=== PATIENT | female | born 1945 | race Caucasian/White ===

== ENCOUNTER 2022-10-24 20:53 | Inpatient (IN) | payer MEDICARE ==
[2022-10-24] MEDS ORDERED: SODIUM CHLORIDE 0.9% 500 ML 500 ML IV ONE (21:26)
[2022-10-24] MEDS ORDERED: CLINDAMYCIN 600 MG in DEXTROSE 5% IN WATER 50 ML IVPB ONE ×2 (21:45)
[2022-10-24 22:08] LABS: Basophils # (A) 0.1 k/uL (0-0.2); Basophils % (A) 1 %; Eosinophils # (A) 0.1 k/uL (0-0.7); Eosinophils % (A) 1 %; HCT 40.9 % (34.0-46.0); HGB 13.3 gm/dL (11.4-16.0); Hypochromasia Slight; Lymphocytes # (A) 1.2 k/uL (1.0-4.8); Lymphocytes % (A) 14 %; MCH 33.6 pg (25.0-35.0); MCHC 32.6 g/dL (31.0-37.0); MCV 103.1 fL (80.0-100.0); Macrocytosis Slight; Mean Platelet Volume 7.9; Monocytes # (A) 0.4 k/uL (0-1.0); Monocytes % (A) 5 %; Neutrophils # (A) 6.7 k/uL (1.3-7.7); Neutrophils % (A) 79 %; Platelet Count 236 k/uL (150-450); RBC 3.97 m/uL (3.80-5.40); RDW 14.7 % (11.5-15.5); WBC 8.6 k/uL (3.8-10.6)
[2022-10-24 22:19] LABS: Calcium 9.2 mg/dL (8.4-10.2); Potassium 3.2 mmol/L (3.5-5.1); Total Protein 7.8 g/dL (6.3-8.2)
[2022-10-24] MEDS ORDERED: NALOXONE 0.4 MG/ML 1 ML VIAL IV PRN (22:39)
--- NOTE | 2022-10-24 22:48 | ED ---
Skin/Abscess/FB HPI - General Chief complaint: Skin/Abscess/Foreign Body Stated complaint: cellulitis Time Seen by Provider: 10/24/22 21:02 Source: patient, family Mode of arrival: wheelchair Limitations: no limitations - History of Present Illness Initial comments: Patient is a 76-year-old female presenting with chief complaint of infection to the bilateral lower extremities. Patient states that since 10/07/22 she has had cellulitis of the left lower extremity. Patient has been on Keflex since then. Patient states that today she noticed redness and swelling to the right lower extremity. Patient has history of lower extremity edema, has been trying to take extra of her torsemide to help with the swelling. She denies any pain. No chest pain, difficulty breathing, abdominal pain, nausea, vomiting, fever, chills, neck pain or stiffness, palpitations, weakness. - Related Data Home Medications Medication Instructions Recorded Confirmed Amiodarone HCl [Pacerone] 200 mg PO DAILY 10/24/22 10/24/22 Apixaban [Eliquis] 5 mg PO BID 10/24/22 10/24/22 Aspirin EC [Ecotrin Low Dose] 81 mg PO HS 10/24/22 10/24/22 Calcium Carbonate/Vitamin D3 1 tab PO HS 10/24/22 10/24/22 [Calcium 600-Vit D3 10 mcg (400 Iu)] Cephalexin [Keflex] 500 mg PO QID 10/24/22 10/24/22 Lidocaine 5% Oint [Xylocaine 5% 1 applic TOPICAL DAILY 10/24/22 10/24/22 Oint] Losartan [Cozaar] 50 mg PO HS 10/24/22 10/24/22 Metoprolol Succinate (ER) [Toprol 50 mg PO HS 10/24/22 10/24/22 Xl] Multivit/Iron Sulf/Folic Acid 1 tab PO HS 10/24/22 10/24/22 [Multivitamin with Iron] Oxybutynin Chloride [Oxybutynin 10 mg PO HS 10/24/22 10/24/22 Chloride ER] Potassium Chloride ER [K-Dur 20] 20 meq PO TID 10/24/22 10/24/22 Simvastatin [Zocor] 10 mg PO DAILY 10/24/22 10/24/22 Torsemide [Demadex] 20 mg PO BID@0900,1400 10/24/22 10/24/22 Vit C/E/Zn/Coppr/Lutein/Zeaxan 1 cap PO DAILY 10/24/22 10/24/22 [Preservision Areds 2 Softgel] allopurinoL [Zyloprim] 100 mg PO BID 10/24/22 10/24/22 cloNIDine 0.3 MG/24HR PATCH 1 patch TRANSDERM FR 10/24/22 10/24/22 [Catapres-Tts 0.3MG Patch] Allergies Allergy/AdvReac Type Severity Reaction Status Date / Time No Known Allergies Allergy Verified 10/24/22 20:59 Review of Systems ROS Statement: Those systems with pertinent positive or pertinent negative responses have been documented in the HPI. ROS Other: All systems not noted in ROS Statement are negative. Past Medical History Past Medical History: Coronary Artery Disease (CAD), Diabetes Mellitus, Hyperlipidemia, Hypertension History of Any Multi-Drug Resistant Organisms: None Reported Past Surgical History: Cholecystectomy, Coronary Bypass/CABG, Joint Replacement, Orthopedic Surgery, Pacemaker Past Psychological History: No Psychological Hx Reported Smoking Status: Never smoker Past Alcohol Use History: None Reported Past Drug Use History: None Reported General Exam Limitations: no limitations General appearance: alert, in no apparent distress Head exam: Present: atraumatic, normocephalic, normal inspection Eye exam: Present: normal appearance Neck exam: Present: normal inspection, full ROM Respiratory exam: Present: normal lung sounds bilaterally. Absent: respiratory distress, wheezes, rales, rhonchi, stridor Cardiovascular Exam: Present: regular rate, normal rhythm, normal heart sounds. Absent: systolic murmur, diastolic murmur, rubs, gallop, clicks Extremities exam: Present: pedal edema Neurological exam: Present: alert, oriented X3, CN II-XII intact Psychiatric exam: Present: normal affect, normal mood Skin exam: Present: warm, dry, erythema (Erythema and dryness to the bilateral lower extremities) Course Vital Signs 10/24/22 10/24/22 20:55 22:12 Temperature 97.9 F Pulse Rate 90 60 Respiratory 16 14 Rate Blood Pressure 196/110 178/82 O2 Sat by Pulse 99 99 Oximetry Medical Decision Making - Medical Decision Making Patient is a 76-year-old female presenting with chief complaint of cellulitis to the bilateral lower extremity is. Patient has been on Keflex since 10/07. Today she noticed new redness to the right lower extremity which prompted presentation. On physical examination there is no tenderness to palpation, redness and swelling are noted. No leukocytosis or anemia. Potassium is 3.2, will receive oral replacement. Patient is receiving IV clindamycin and blood cultures were drawn prior to initiation. Patient will be admitted for cellulitis. I instructed the nurse to wrap and elevate the lower extremities to help with edema which is likely causing worsening of her infection. I spoke with Spike George from [facility] was accepted admission. Follow-up with PCP. Report back to ER with any new or worsening symptoms. Discussed return parameters and answered all questions. Patient conveyed verbal understanding and agreed to the plan. I discussed this case in detail with my attending Dr. Santa - Lab Data Result diagrams: 10/24/22 21:55 10/24/22 21:55 Lab Results 10/24/22 10/24/22 10/24/22 Range/Units 21:55 21:55 21:55 WBC 8.6 (3.8-10.6) k/uL RBC 3.97 (3.80-5.40) m/uL Hgb 13.3 (11.4-16.0) gm/dL Hct 40.9 (34.0-46.0) % MCV 103.1 H (80.0-100.0) fL MCH 33.6 (25.0-35.0) pg MCHC 32.6 (31.0-37.0) g/dL RDW 14.7 (11.5-15.5) % Plt Count 236 (150-450) k/uL MPV 7.9 Neutrophils % 79 % Lymphocytes % 14 % Monocytes % 5 % Eosinophils % 1 % Basophils % 1 % Neutrophils # 6.7 (1.3-7.7) k/uL Lymphocytes # 1.2 (1.0-4.8) k/uL Monocytes # 0.4 (0-1.0) k/uL Eosinophils # 0.1 (0-0.7) k/uL Basophils # 0.1 (0-0.2) k/uL Hypochromasia Slight Macrocytosis Slight Sodium 141 (137-145) mmol/L Potassium 3.2 L (3.5-5.1) mmol/L Chloride 103 (98-107) mmol/L Carbon Dioxide 27 (22-30) mmol/L Anion Gap 11 mmol/L BUN 24 H (7-17) mg/dL Creatinine 0.96 (0.52-1.04) mg/dL Est GFR (CKD-EPI)AfAm 67 (>60 ml/min/1.73 sqM) Est GFR (CKD-EPI)NonAf 58 (>60 ml/min/1.73 sqM) Glucose 131 H (74-99) mg/dL Plasma Lactic Acid Tye 1.4 (0.7-2.0) mmol/L Calcium 9.2 (8.4-10.2) mg/dL Total Bilirubin 2.0 H (0.2-1.3) mg/dL AST 27 (14-36) U/L ALT 18 (4-34) U/L Alkaline Phosphatase 152 H (38-126) U/L Total Protein 7.8 (6.3-8.2) g/dL Albumin 5.0 (3.5-5.0) g/dL Disposition Clinical Impression: Cellulitis Disposition: ADMITTED IP TO THIS [facility] Condition: Fair Referrals: Nonstaff,Physician [Primary Care Provider] - 1-2 days Time of Disposition: 22:48 Decision to Admit Reason: Admit from EC Decision Date: 10/24/22 Decision Time: 22:48
[2022-10-24] MEDS ORDERED: Potassium Replacement Protocol 1 EACH MISC MISCELLANE PRN (23:47)
[2022-10-25] MEDS: POTASSIUM CHLORIDE ER 20 MEQ TAB.ER PO SCH ×5 (00:31→19:57)
[2022-10-25 07:37] LABS: Glucose,Whole Blood 101 mg/dL (70-110)
[2022-10-25 12:08] LABS: Glucose,Whole Blood 170 mg/dL (70-110)
[2022-10-25] MEDS ORDERED: FUROSEMIDE 10 MG/ML 4 ML VIAL IV STA (12:59)
[2022-10-25] MEDS: allopurinoL 100 MG TAB PO SCH ×2 (13:55→20:00)
[2022-10-25] MEDS: AMIODARONE 200 MG TAB PO SCH (13:56)
[2022-10-25] MEDS: VIT A,C & E-LUTEIN-MINERALS 1 EACH TAB PO SCH (13:57)
[2022-10-25] MEDS: LIDOCAINE 2% GLYDO JELLY 6 ML APPL MISCELLANE SCH (13:57)
[2022-10-25] MEDS: ATORVASTATIN 10 MG TAB PO SCH (13:58)
[2022-10-25 17:13] LABS: Glucose,Whole Blood 96 mg/dL (70-110)
[2022-10-25] MEDS: APIXABAN 5 MG TAB PO SCH (19:56)
[2022-10-25] MEDS ORDERED: CALCIUM CARB-VIT D 500 MG-5 MCG TAB PO SCH (21:00)
[2022-10-25] MEDS ORDERED: LOSARTAN 50 MG TAB PO SCH (21:00)
[2022-10-25] MEDS ORDERED: MULTIVITAMINS, THERA 1 EACH TAB PO SCH (21:00)
[2022-10-25] MEDS ORDERED: METOPROLOL SUCCINATE (ER) 50 MG TAB.ER.24H PO SCH (21:00)
[2022-10-25] MEDS ORDERED: ASPIRIN 81 MG PO SCH (21:00)
[2022-10-25] MEDS ORDERED: OXYBUTYNIN 10 MG TAB.ER.24 PO SCH (21:00)
[2022-10-25 21:24] LABS: Glucose,Whole Blood 135 mg/dL (70-110)
--- NOTE | 2022-10-25 23:03 | P.CONS ---
History of Present Illness - Reason for Consult Consult date: 10/25/22 Bilateral lower extremity cellulitis Requesting physician: Nesha Deleon - Chief Complaint Bilateral lower extremity swelling and redness x few weeks - History of Present Illness Patient is a 76-year-old female recently started having a problem with the left lower extremity swelling and redness and pain for the patient was evaluated by her primary care physician has been diagnosed with a cellulitis treated with a ten-day course of Keflex did not have complete resolution though did have some improvement was given another week course of oral Keflex patient s ubsequently got her primary care physician concerning for the right leg becoming swelling and redness especially to the foot area patient denies having any trauma has been complaining of swelling and redness especially to the right leg pain which she described need to be dull aching 5-6 out of 10 and no radiation currently with no open wound or any drainage with these symptoms the patient has been evaluated by the ER physician on arrival to the ER the patient was afebrile patient did have a normal white count kidney function has been normal liver enzymes are normal patient was continued on oral Keflex Antibiotic was subsequent switched over to cefazolin infectious disease was consulted for f fredyther management of antibiotic therapy Review of Systems Positive point has been mentioned in the HPI rest of the systems are negative Past Medical History Past Medical History: Coronary Artery Disease (CAD), Diabetes Mellitus, H yperlipidemia, Hypertension History of Any Multi-Drug Resistant Organisms: None Reported Past Surgical History: Cholecystectomy, Coronary Bypass/CABG, Joint Replacement, Orthopedic Surgery, Pacemaker Type of Cardiac Device: Permanent Pacemaker Device Placement Date:: 2017 Past Psychological History: No Psychological Hx Reported Smoking Status: Never smoker Past Alcohol Use History: None Reported Past Drug Use History: None Reported Medications and Allergies Home Medications Medication Instructions Recorded Confirmed Type Amiodarone HCl [Pacerone] 200 mg PO DAILY 10/24/22 10/24/22 History Apixaban [Eliquis] 5 mg PO BID 10/24/22 10/24/22 History Aspirin EC [Ecotrin Low Dose] 81 mg PO HS 10/24/22 10/24/22 History Calcium Carbonate/Vitamin D3 1 tab PO HS 10/24/22 10/24/22 History [Calcium 600-Vit D3 10 mcg (400 Iu)] Cephalexin [Keflex] 500 mg PO QID 10/24/22 10/24/22 History Lidocaine 5% Oint [Xylocaine 5% 1 applic TOPICAL DAILY 10/24/22 10/24/22 History Oint] Losartan [Cozaar] 50 mg PO HS 10/24/22 10/24/22 History Metoprolol Succinate (ER) [Toprol 50 mg PO HS 10/24/22 10/24/22 History Xl] Multivit/Iron Sulf/Folic Acid 1 tab PO HS 10/24/22 10/24/22 History [Multivitamin with Iron] Oxybutynin Chloride [Oxybutynin 10 mg PO HS 10/24/22 10/24/22 History Chloride ER] Potassium Chloride ER [K-Dur 20] 20 meq PO TID 10/24/22 10/24/22 History Simvastatin [Zocor] 10 mg PO DAILY 10/24/22 10/24/22 History Torsemide [Demadex] 20 mg PO BID@0900,1400 10/24/22 10/24/22 History Vit C/E/Zn/Coppr/Lutein/Zeaxan 1 cap PO DAILY 10/24/22 10/24/22 History [Preservision Areds 2 Softgel] allopurinoL [Zyloprim] 100 mg PO BID 10/24/22 10/24/22 History cloNIDine 0.3 MG/24HR PATCH 1 patch TRANSDERM FR 10/24/22 10/24/22 History [Catapres-Tts 0.3MG Patch] Allergies Allergy/AdvReac Type Severity Reaction Status Date / Time No Known Allergies Allergy Verified 10/24/22 20:59 Physical Exam Vitals: Vital Signs Temp Pulse Pulse Resp BP BP BP 10/25/22 08:20 97.8 F 58 L 16 143/85 10/25/22 02:15 17 10/25/22 01:34 97.6 F 60 17 159/76 10/24/22 22:12 60 14 178/82 10/24/22 20:55 97.9 F 90 16 196/110 Pulse Ox 10/25/22 08:20 95 10/25/22 02:15 10/25/22 01:34 100 10/24/22 22:12 99 10/24/22 20:55 99 Intake and Output 10/24/22 10/25/22 10/25/22 22:59 06:59 14:59 Intake Total 0 Output Total 250 250 Balance -250 -250 Intake: Oral 0 Output: Urine 250 250 Other: Voiding Method Diaper External Catheter Weight 90.718 kg 90.718 kg GENERAL DESCRIPTION: Elderly male lying in bed, no distress. No tachypnea or accessory muscle of respiration use. HEENT: Shows Pallor , no scleral icterus. Oral mucous membrane is dry. No pharyngeal erythema or thrush NECK: Trachea central, no thyromegaly. LUNGS: Unlabored breathing. Clear to auscultation anteriorly. No wheeze or crackle. HEART: S1, S2, regular rate and rhythm. No loud murmur ABDOMEN: Soft, no tenderness , guarding or rigidity, no organomegaly EXTREMITIES: Bilateral lower extremity with minimal swelling some redness warmth and tenderness to touch especially the left leg with open wound or any drainage. SKIN: No rash, no masses palpable. NEUROLOGICAL: The patient is awake, alert, oriented x3, mood and affect normal. Results CBC & Chem 7: 10/24/22 21:55 10/24/22 21:55 Labs: Abnormal Lab Results - Last 24 Hours (Table) 10/24/22 10/24/22 Range/Units 21:55 21:55 MCV 103.1 H (80.0-100.0) fL Potassium 3.2 L (3.5-5.1) mmol/L BUN 24 H (7-17) mg/dL Glucose 131 H (74-99) mg/dL Total Bilirubin 2.0 H (0.2-1.3) mg/dL Alkaline Phosphatase 152 H (38-126) U/L Assessment and Plan (1) Cellulitis Current Visit: Yes Status: Acute Code(s): L03.90 - CELLULITIS, UNSPECIFIED SNOMED Code(s): 748860088 Plan: 1patient with bilateral lower extremity cellulitis right greater than the left failing outpatient oral Keflex question of possible burden of disease patient currently do not have any open wound or induration to be suspicious for underlying abscess. 2marked the area of the redness and apply Lobito wrap to the leg to keep the swelling down. 3continue with the cefazolin 2 g every 8 hours. We will follow on clinical condition and cultures to further adjust medication if needed Thank you for this consultation will follow this patient with you Time with Patient: Greater than 30
[2022-10-26] MEDS ORDERED: DEXTROSE 50% SYRINGE 50 ML IVP PRN ×2 (04:47)
--- NOTE | 2022-10-26 04:58 | P.HPIM ---
History of Present Illness H&P Date: 10/25/22 This is a pleasant 76-year-old female who recently presented to the emergency department with bilateral lower extremity redness and swelling and concerns for infection. Patient reports she has been following with her primary care provider and started on Keflex with some mild improvement although continued with the redness and was given an additional week of Keflex. Patient reports she takes torsemide outpatient and has been increasing the dose to assist with swelling. Patient has a past medical history of coronary artery disease, diabetes mellitus, hyperlipidemia, hypertension. Patient is on eliquis in the outpatient setting with a past medical history of CABG with pacemaker. Patient denies tobacco or alcohol use and denies any other illicit drugs. Labs revealed a potassium of 3.2 and being replaced in the ER and will follow-up with repeat labs. Initiated and patient was given a dose of IV clindamycin. Patient admitted for cellulitis. Review Of Systems: Constitutional: No fever, no chills, no night sweats. No weight change. No weakness, fatigue or lethargy. No daytime sleepiness. EENT: No headache. No blurred vision or double vision, no loss of vision. No loss of Hearing, no ringing in the ears, no dizziness. No nasal drainage or congestion. No epistaxis. No sore throat. Lungs: No shortness of breath, cough, no sputum production. No wheezing. Cardiovascular: No chest pain, no lower extremity edema. No palpitations. No paroxysmal nocturnal dyspnea. No orthopnea. No lightheadedness or dizziness. No syncopal episodes. Abdominal: No abdominal pain. No nausea, vomiting. No diarrhea. No constipation. No bloody or tarry stools.. No loss of appetite. Genitourinary: No dysuria, increased frequency, urgency. No urinary retention. Musculoskeletal: No myalgias. No muscle weakness, no gait dysfunction, no frequent falls. No back pain. No neck pain. Integumentary: No wounds, no lesions. No rash or pruritus. No unusual bruising. No change in hair or nails. Redness and swelling noted to bilateral lower extremities with no breaks in skin noted on exam Neurologic: No aphasia. No facial droop. No change in mentation. No head injury. No headache. No paralysis. No paresthesia. Psychiatric: No depression. No anxiety. No mood swings. Endocrine: No abnormal blood sugars. No weight change. No excessive sweating or thirst. No cold intolerance. PHYSICAL EXAMINATION: GENERAL: The patient is alert and oriented x4, Well developed, well nourished. Obese HEENT: Pupils are round and equally reacting to light. EOMI. no scleral icterus. No conjunctival pallor. Normocephalic, atraumatic. No pharyngeal erythema. No thyromegaly. CARDIOVASCULAR: S1 and S2 muffled PULMONARY: Breath sounds clear to auscultation bilaterally with no wheezing or rhonchi noted. ABDOMEN: soft. Nontender on exam. obese. non-distended, normoactive bowel sounds. No palpable organomegaly. MUSCULOSKELETAL: No joint swelling or deformity. EXTREMITIES: No cyanosis, clubbing, or pedal edema. Bilateral lower extremity erythema and swelling noted with intact skin NEUROLOGICAL: Gross neurological examination did not reveal any focal deficits. SKIN: No rashes. Except for mentioned above Assessment: Bilateral lower extremity cellulitis with failed outpatient treatment Diabetes mellitus, type II History of coronary artery disease with CABG and pacemaker Hyperlipidemia Hypertension Obesity with a body mass index of 34.3 GI prophylaxis DVT prophylaxis Full code Plan: Recommend to continue with current medications and management and patient was given a dose of IV clindamycin in the ER were extremities were wrapped Home medications were reviewed and resumed Recommendations wrapping bilateral lower extremities from the toes up to the knees patient elevate extremities while at rest. Patient given a dose of Lasix Recommend ID consultation and will initiate IV cefazolin and discuss with ID about possible vancomycin Blood cultures remain negative Recommend to replace electrolytes per protocol will follow-up with repeat labs Obtain a bilateral venous Doppler ultrasound to assess for any DVT Encouraged to increase activity as tolerated Patient is a diabetic and reports is well controlled will continue with Accu- Cheks before meals and at bedtime and use sliding scale as needed The impression and plan of care has been dictated by Nesha Deleon, nurse practitioner as directed. Dr. Diana KELLER I have performed a history and examination and MDM of this patient, discussed the same with the dictator, and agree with the dictator's assessment and plan as written ,documented as a scribe. Based on total visit time, I have performed more than 50% of the visit. Any additional findings or plans will be noted. Past Medical History Past Medical History: Coronary Artery Disease (CAD), Diabetes Mellitus, Hyperlipidemia, Hypertension History of Any Multi-Drug Resistant Organisms: None Reported Past Surgical History: Cholecystectomy, Coronary Bypass/CABG, Joint Replacement, Orthopedic Surgery, Pacemaker Type of Cardiac Device: Permanent Pacemaker Device Placement Date:: 2017 Past Psychological History: No Psychological Hx Reported Smoking Status: Never smoker Past Alcohol Use History: None Reported Past Drug Use History: None Reported Medications and Allergies Home Medications Medication Instructions Recorded Confirmed Type Amiodarone HCl [Pacerone] 200 mg PO DAILY 10/24/22 10/24/22 History Apixaban [Eliquis] 5 mg PO BID 10/24/22 10/24/22 History Aspirin EC [Ecotrin Low Dose] 81 mg PO HS 10/24/22 10/24/22 History Calcium Carbonate/Vitamin D3 1 tab PO HS 10/24/22 10/24/22 History [Calcium 600-Vit D3 10 mcg (400 Iu)] Cephalexin [Keflex] 500 mg PO QID 10/24/22 10/24/22 History Lidocaine 5% Oint [Xylocaine 5% 1 applic TOPICAL DAILY 10/24/22 10/24/22 History Oint] Losartan [Cozaar] 50 mg PO HS 10/24/22 10/24/22 History Metoprolol Succinate (ER) [Toprol 50 mg PO HS 10/24/22 10/24/22 History Xl] Multivit/Iron Sulf/Folic Acid 1 tab PO HS 10/24/22 10/24/22 History [Multivitamin with Iron] Oxybutynin Chloride [Oxybutynin 10 mg PO HS 10/24/22 10/24/22 History Chloride ER] Potassium Chloride ER [K-Dur 20] 20 meq PO TID 10/24/22 10/24/22 History Simvastatin [Zocor] 10 mg PO DAILY 10/24/22 10/24/22 History Torsemide [Demadex] 20 mg PO BID@0900,1400 10/24/22 10/24/22 History Vit C/E/Zn/Coppr/Lutein/Zeaxan 1 cap PO DAILY 10/24/22 10/24/22 History [Preservision Areds 2 Softgel] allopurinoL [Zyloprim] 100 mg PO BID 10/24/22 10/24/22 History cloNIDine 0.3 MG/24HR PATCH 1 patch TRANSDERM FR 10/24/22 10/24/22 History [Catapres-Tts 0.3MG Patch] Allergies Allergy/AdvReac Type Severity Reaction Status Date / Time No Known Allergies Allergy Verified 10/24/22 20:59 Physical Exam Vitals: Vital Signs Temp Pulse Pulse Resp BP BP BP 10/25/22 08:20 97.8 F 58 L 16 143/85 10/25/22 02:15 17 10/25/22 01:34 97.6 F 60 17 159/76 10/24/22 22:12 60 14 178/82 10/24/22 20:55 97.9 F 90 16 196/110 Pulse Ox 10/25/22 08:20 95 10/25/22 02:15 10/25/22 01:34 100 10/24/22 22:12 99 10/24/22 20:55 99 Intake and Output 10/24/22 10/25/22 10/25/22 22:59 06:59 14:59 Intake Total 0 Output Total 250 Balance -250 0 Intake: Oral 0 Output: Urine 250 Other: Voiding Method Diaper External Catheter Weight 90.718 kg 90.718 kg Results CBC & Chem 7: 10/24/22 21:55 10/24/22 21:55 Labs: Abnormal Lab Results - Last 24 Hours (Table) 10/24/22 10/24/22 Range/Units 21:55 21:55 MCV 103.1 H (80.0-100.0) fL Potassium 3.2 L (3.5-5.1) mmol/L BUN 24 H (7-17) mg/dL Glucose 131 H (74-99) mg/dL Total Bilirubin 2.0 H (0.2-1.3) mg/dL Alkaline Phosphatase 152 H (38-126) U/L Thrombosis Risk Factor Assmnt - DVT/VTE Prophylaxis DVT/VTE Prophylaxis: Pharmacologic Prophylaxis ordered - Choose All That Apply Each Factor Represents 1 point: Obesity (BMI >25) Each Risk Factor Represents 3 Points: Age 75 years or older Thrombosis Risk Factor Assessment Total Risk Factor Score: 4 Thrombosis Risk Factor Assessment Level: Moderate Risk Assessment and Plan Time with Patient: Greater than 30
[2022-10-26 06:24] LABS: Glucose,Whole Blood 106 mg/dL (70-110)
[2022-10-26] MEDS: APIXABAN 5 MG TAB PO SCH (07:50)
[2022-10-26] MEDS: allopurinoL 100 MG TAB PO SCH (07:50)
[2022-10-26] MEDS: POTASSIUM CHLORIDE ER 20 MEQ TAB.ER PO SCH (07:50)
[2022-10-26] MEDS: ATORVASTATIN 10 MG TAB PO SCH (07:50)
[2022-10-26] MEDS: AMIODARONE 200 MG TAB PO SCH (07:50)
[2022-10-26] MEDS: VIT A,C & E-LUTEIN-MINERALS 1 EACH TAB PO SCH (07:50)
--- NOTE | 2022-10-26 08:12 | US ---
EXAMINATION TYPE: US venous doppler duplex LE BI DATE OF EXAM: 10/26/2022 7:51 AM COMPARISON: NONE CLINICAL HISTORY: bilateral lower extremity swelling and redness. SIDE PERFORMED: Bilateral TECHNIQUE: The lower extremity deep venous system is examined utilizing real time linear array sonog alysa with graded compression, doppler sonography and color-flow sonography. VESSELS IMAGED: Common Femoral Vein Deep Femoral Vein Greater Saphenous Vein * Femoral Vein Popliteal Vein Small Saphenous Vein * Proximal Calf Veins (* superficial vessels) Right Leg: Negative for DVT Left Leg: Negative for DVT IMPRESSION: No evidence for DVT.
[2022-10-26 08:26] VITALS: RESP 16
[2022-10-26] MEDS: INSULIN ASPART (NovoLOG) 100 UNIT/ML VIAL SQ SCH ×2 (08:55→13:01)
[2022-10-26 09:15] LABS: African American GFR (CKD) 50.8 (60.0-200.0); Albumin 4.1 g/dL (3.8-4.9); Albumin/Globulin Ratio 2.05 (1.60-3.17); Anion Gap 11.7 mmol/L (10.00-18.00); BUN/Creat Ratio 13.67 Ratio (12.00-20.00); Blood Urea Nitrogen 16.4 mg/dL (9.0-27.0); Calcium 9.6 mg/dL (8.7-10.3); Carbon Dioxide 24.3 mmol/L (20.0-27.5); Non-African American GFR(CKD) 43.9 (60.0-200.0); Potassium 4.3 mmol/L (3.5-5.5); Total Bilirubin 0.9 mg/dL (0.30-1.20); Total Protein 6.1 g/dL (6.2-8.2)
[2022-10-26 12:44] LABS: Glucose,Whole Blood 115 mg/dL (70-110)
[2022-10-26] MEDS: LIDOCAINE 2% GLYDO JELLY 6 ML APPL MISCELLANE SCH (13:00)
[2022-10-26 14:57] VITALS: BP 154/94; PULSE 70; TEMP 98.2
--- NOTE | 2022-10-26 15:08 | P.PN ---
Subjective Progress Note Date: 10/26/22 Principal diagnosis: Bilateral lower extremity cellulitis Patient is a 76 year old female presenting to the hospital with bilateral lower extremity swelling redness concerning for cellulitis failing outpatient oral Keflex therapy on today's evaluation of his 10/26/2022, the patient denies having any fever or chills, patient mentions lower extremity swelling redness has improved currently denies pain patient would not have any open wound or any drainage patient is feeling better and wants to go home no chest pain shortness of breath or cough Objective - Vital Signs Vital signs: Vital Signs Temp 97.5 F L 10/26/22 07:00 Pulse 63 10/26/22 08:00 Resp 16 10/26/22 08:00 BP 168/88 10/26/22 07:00 Pulse Ox 98 10/26/22 07:00 FiO2 Intake & Output 10/25/22 10/26/22 10/26/22 18:59 06:59 18:59 Intake Total 476 118 Output Total 1775 700 Balance -3849 -582 Intake: Oral 476 118 Output: Urine 1775 700 Other: Voiding Method Diaper Diaper Diaper External Catheter External Catheter External Catheter # Voids 1 1 # Bowel Movements 1 - Exam GENERAL DESCRIPTION: An elderly female lying in bed in no distress RESPIRATORY SYSTEM: Unlabored breathing , decreased breath sounds at bases HEART: S1 S2 regular rate and rhythm , ABDOMEN: Soft , no tenderness EXTREMITIES: Bilateral lower extremity swelling redness has improved no open wound or any drainage - Labs CBC & Chem 7: 10/24/22 21:55 10/26/22 06:07 Labs: Abnormal Lab Results - Last 24 Hours (Table) 10/25/22 10/26/22 Range/Units 21:22 06:07 Est GFR (CKD-EPI)AfAm 50.8 L (60.0-200.0) Est GFR (CKD-EPI)NonAf 43.9 L (60.0-200.0) POC Glucose (mg/dL) 135 H (70-110) mg/dL Total Protein 6.1 L (6.2-8.2) g/dL Microbiology - Last 24 Hours (Table) 10/24/22 21:40 Blood Culture - Preliminary Blood No Growth after 24 hours 10/24/22 21:45 Blood Culture - Preliminary Blood No Growth after 24 hours Assessment and Plan (1) Cellulitis Current Visit: Yes Status: Acute Code(s): L03.90 - CELLULITIS, UNSPECIFIED SNOMED Code(s): 247524163 Plan: 1patient with bilateral lower extremity cellulitis right greater than the left failing outpatient oral Keflex question of possible burden of disease patient currently do not have any open wound or induration to be suspicious for underlying abscess. 2patient has been advised to continue with compression stocks or Lobito wrap to the leg to keep the swelling down. 3patient has shown clinical improvement and will finish therapy with oral Ceftin 7-10 days discussed with [facility] for admitting team Time with Patient: Less than 30
[2022-10-27] MEDS ORDERED: cloNIDine 0.3 MG/24HR PATCH TRANSDERM SCH (09:00)
--- NOTE | 2022-10-30 09:39 | P.DS ---
Providers Date of admission: 10/24/22 22:47 Expected date of discharge: 10/26/22 Attending physician: Ann Marie Palmer Consults: 10/25/22 09:45 Consult Physician Urgent Consulting Provider: Amalia He Consult Reason/Comments: Bilateral lower extremity cellulitis with failed outpatient Do you want consulting provider notified?: Yes Primary care physician: Physician Nonstaff Hospital Course: Final diagnosis Bilateral lower extremity cellulitis with failed outpatient treatment Diabetes mellitus, type II History of coronary artery disease with CABG and pacemaker Hyperlipidemia Hypertension Obesity with a body mass index of 34.3 GI prophylaxis DVT prophylaxis Full code Discharge disposition Patient is being discharged in a stable condition with guarded prognosis to [facility]. Patient will follow-up with her PCP out of [place] in the outpatient setting upon discharge. Patient is to continue with current medication regimen. Patient will continue on oral Ceftin 500 mg twice daily for the next week to complete the course. Total time taken is greater than 35 minutes. Hospital course This is a 77-year-old female who was recently admitted with increased redness and swelling to bilateral lower extremities with concerns for cellulitis. Patient had been treated outpatient with Keflex 2 courses with failed outpatient treatment and was started on IV cefazolin and given a dose of Lasix. Patient showed clinical improvement and recommend continue with Lobito wrapping of bilateral lower extremities and elevating while at rest and will continue on oral Ceftin per ID recommendations with close outpatient follow-up with primary care provider. Patient had bilateral Dopplers of both lower extremities done which were negative for DVT. Patient is on chronic anticoagulation status post pacemaker. Currently no reports of chest pain, shortness of breath, or palpitations. Patient is afebrile. No reports of nausea or vomiting and patient is tolerating diet. Patient will be discharged home today. Physical exam: Gen: This is a 77-year-old female who is awake, alert and oriented 3, well- developed, well-nourished, obese HEENT: Head is atraumatic, normocephalic. Pupils equal, round. Sclerae is anicteric. NECK: Supple. No JVD. No lymphadenopathy. No thyromegaly. LUNGS: Clear to auscultation. No wheezes or rhonchi. No intercostal retractions. HEART: Regular rate and rhythm. No murmur. ABDOMEN: Soft. Bowel sounds are present. No masses. No tenderness. EXTREMITIES: No pedal edema. No calf tenderness. Bilateral lower extremity edema and redness improved and skin is intact NEUROLOGICAL: Patient is awake, alert and oriented x3. Cranial nerves 2 through 12 are grossly intact. Please refer to medication reconciliation sheet for a list of medications. The impression and plan of care has been dictated by Nesha Deleon, Nurse Practitioner as directed. MD Chelo I have performed a history and examination and MDM of this patient, discussed the same with the dictator, and agree with the dictator's assessment and plan as written ,documented as a scribe. Based on total visit time, I have performed more than 50% of the visit. Patient Condition at Discharge: Fair Plan - Discharge Summary New Discharge Prescriptions: New cefUROXime axetiL [Ceftin] 500 mg PO BID 7 Days #14 tab Continue Calcium Carbonate/Vitamin D3 [Calcium 600-Vit D3 10 mcg (400 Iu)] 1 tab PO HS Aspirin EC [Ecotrin Low Dose] 81 mg PO HS Simvastatin [Zocor] 10 mg PO DAILY Oxybutynin Chloride [Oxybutynin Chloride ER] 10 mg PO HS Losartan [Cozaar] 50 mg PO HS allopurinoL [Zyloprim] 100 mg PO BID Amiodarone HCl [Pacerone] 200 mg PO DAILY Multivit/Iron Sulf/Folic Acid [Multivitamin with Iron] 1 tab PO HS Torsemide [Demadex] 20 mg PO BID@0900,1400 Metoprolol Succinate (ER) [Toprol XL] 50 mg PO HS Potassium Chloride ER [K-Dur 20] 20 meq PO TID Lidocaine 5% Oint [Xylocaine 5% Oint] 1 applic TOPICAL DAILY Apixaban [Eliquis] 5 mg PO BID Vit C/E/Zn/Coppr/Lutein/Zeaxan [Preservision Areds 2 Softgel] 1 cap PO DAILY cloNIDine 0.3 MG/24HR PATCH [Catapres-TTS] 1 patch TRANSDERM FR #1 patch Discontinued Cephalexin [Keflex] 500 mg PO QID Discharge Medication List Amiodarone HCl [Pacerone] 200 mg PO DAILY 10/24/22 [History] Apixaban [Eliquis] 5 mg PO BID 10/24/22 [History] Aspirin EC [Ecotrin Low Dose] 81 mg PO HS 10/24/22 [History] Calcium Carbonate/Vitamin D3 [Calcium 600-Vit D3 10 mcg (400 Iu)] 1 tab PO HS 10/24/22 [History] Lidocaine 5% Oint [Xylocaine 5% Oint] 1 applic TOPICAL DAILY 10/24/22 [History] Losartan [Cozaar] 50 mg PO HS 10/24/22 [History] Metoprolol Succinate (ER) [Toprol XL] 50 mg PO HS 10/24/22 [History] Multivit/Iron Sulf/Folic Acid [Multivitamin with Iron] 1 tab PO HS 10/24/22 [History] Oxybutynin Chloride [Oxybutynin Chloride ER] 10 mg PO HS 10/24/22 [History] Potassium Chloride ER [K-Dur 20] 20 meq PO TID 10/24/22 [History] Simvastatin [Zocor] 10 mg PO DAILY 10/24/22 [History] Torsemide [Demadex] 20 mg PO BID@0900,1400 10/24/22 [History] Vit C/E/Zn/Coppr/Lutein/Zeaxan [Preservision Areds 2 Softgel] 1 cap PO DAILY 10/24/22 [History] allopurinoL [Zyloprim] 100 mg PO BID 10/24/22 [History] cefUROXime axetiL [Ceftin] 500 mg PO BID 7 Days #14 tab 10/26/22 [Rx] cloNIDine 0.3 MG/24HR PATCH [Catapres-TTS] 1 patch TRANSDERM FR #1 patch 10/26/22 [Rx] Follow up Appointment(s)/Referral(s): Nonstaff,Physician [Primary Care Provider] - 1-2 days Patient Instructions/Handouts: Cefuroxime (By mouth), Cellulitis (GEN) Activity/Diet/Wound Care/Special Instructions: Activity Limited until follow-up Follow-up with primary care provider on discharge Continue taking antibiotics until finished Continue to Lobito wrap lower extremities from the toes up to the knees and elevate while at rest Continue with compression stockings while ambulating Discharge Disposition: HOME SELF-CARE
== END 2022-10-26 15:13 | disposition home or self-care (01) | DRG 603 ==
LOC: EC 20:53 → 6NMEDSUR 22:47
PROVIDERS: ADMIT Hospitalist; ATTEND Hospitalist
DX: L03.116 Cellulitis of left lower limb (principal); E11.9 Type 2 diabetes mellitus without complications; Z68.34 Body mass index [BMI] 34.0-34.9, adult; E66.9 Obesity, unspecified; I10 Essential (primary) hypertension; E78.5 Hyperlipidemia, unspecified; I25.10 Atherosclerotic heart disease of native coronary artery without angina pectoris; L03.115 Cellulitis of right lower limb; M79.89 Other specified soft tissue disorders; R60.0 Localized edema; Z79.899 Other long term (current) drug therapy; Z79.01 Long term (current) use of anticoagulants; Z79.82 Long term (current) use of aspirin; Z95.1 Presence of aortocoronary bypass graft; Z95.0 Presence of cardiac pacemaker
CPT/HCPCS: 36415; 80053; 83605; 83735; 85025; 87040; 93970; 96365; 96375; 99284; 99285